=== PATIENT | male | born 1995 | race Two or more races ===

== ENCOUNTER 2023-05-29 00:32 | Emergency (ER) | payer SELFPAY ==
[~2023-05-29] VITALS: Ht 175.3 cm; Wt 125.0 kg
[2023-05-29 00:51] VITALS: BP 153/111; PULSE 87; RESP 16; TEMP 98.1
== END 2023-05-29 01:57 | disposition home or self-care (01) ==
LOC: EMS 00:33
DX: M24.411 Recurrent dislocation, right shoulder (principal)
CPT/HCPCS: 23650; 99284; 73030-TC; Z7502